=== PATIENT | male | born 1990 | race African-American/Black ===

== ENCOUNTER 2023-04-22 16:41 | Emergency (ER) | payer SELFPAY ==
[2023-04-22] MEDS ORDERED: Lidocaine 1% PF 5 ML VIAL ONE (17:23)
== END 2023-04-22 19:21 | disposition home or self-care (01) ==
LOC: ERS 16:41
DX: S61.041A Puncture wound with foreign body of right thumb without damage to nail, initial encounter (principal); W45.8XXA Other foreign body or object entering through skin, initial encounter; Z87.891 Personal history of nicotine dependence
CPT/HCPCS: 90471